=== PATIENT | female | born 1995 | race Caucasian/White ===

== ENCOUNTER → 2016-10-13 | Outpatient (REF) | payer BC ==
[~2016-10-13] MED LIST: ACET50TA PO; NORC5TAB PO
== END ==
LOC: M LAB REF 16:37
PROVIDERS: ATTEND Nurse Practitioner Adult Health
DX: Z00.01 Encounter for general adult medical examination with abnormal findings (principal); M25.50 Pain in unspecified joint

== ENCOUNTER 2017-06-08 11:13 | Emergency (ER) | payer BC ==
[~2017-06-08] VITALS: Ht 160 cm; Wt 82.4 kg
[2017-06-08] MEDS ORDERED: MECL-68 (11:20)
[2017-06-08] MEDS ORDERED: AZIT500T2 (11:20)
--- NOTE | 2017-06-08 13:35 | REP ---
CT Head without contrast HISTORY: Dizziness COMPARISON: None There is no intraparenchymal hemorrhage, acute infarct, mass or midline shift. The ventricular system is normal in appearance. There is no extra cerebral collection. There is no fracture. Mucosal thickening is present in the ethmoid sinuses. IMPRESSION: There is no intracranial lesion. Signed by Geraldo Torres MD 06/08/2017 01:26 P
[2017-06-08 13:58] LABS: METHADONE URINE NEGATIVE (NEGATIVE)
[2017-06-08 14:18] VITALS: BP 129/78
[2017-07-12] MEDS ORDERED: IBUP-1114 PO (22:48)
[2017-07-12] MEDS ORDERED: implanon (22:48)
[2017-07-13] MEDS ORDERED: BENT10CA PO (04:35)
== END 2017-06-08 14:33 | disposition home or self-care (01) ==
LOC: M ED 11:13
DX: R51 Headache (principal); H53.8 Other visual disturbances; R82.5 Elevated urine levels of drugs, medicaments and biological substances; Z79.899 Other long term (current) drug therapy; Z79.2 Long term (current) use of antibiotics; Z91.011 Allergy to milk products; Z88.5 Allergy status to narcotic agent
CPT/HCPCS: 70450; 80307; 81025; 99283; G0480

== ENCOUNTER → 2017-10-14 | Outpatient (REF) | payer BC ==
[2017-10-17 00:06] LABS: TISSUE TRANSGLUTAMINASE IgA <2 U/mL (0-3)
[2017-10-17 00:06] LABS: ENDOMYSIAL ABY IgA Negative (Negative)
== END ==
LOC: M LAB REF 17:58
DX: R19.7 Diarrhea, unspecified (principal); R10.9 Unspecified abdominal pain
CPT/HCPCS: 86255

== ENCOUNTER 2017-12-31 08:23 | Emergency (ER) | payer BC ==
[2017-12-31] MEDS: CYCLOBENZAPRINE 10 MG TAB PO (09:15)
== END 2017-12-31 10:43 | disposition home or self-care (01) ==
LOC: M ED 08:23
DX: S09.90XA Unspecified injury of head, initial encounter (principal); S16.1XXA Strain of muscle, fascia and tendon at neck level, initial encounter; X58.XXXA Exposure to other specified factors, initial encounter; Y92.89 Other specified places as the place of occurrence of the external cause; G89.29 Other chronic pain; F33.9 Major depressive disorder, recurrent, unspecified; Z87.828 Personal history of other (healed) physical injury and trauma; E73.9 Lactose intolerance, unspecified; Z79.3 Long term (current) use of hormonal contraceptives; Z88.5 Allergy status to narcotic agent; Z91.040 Latex allergy status
CPT/HCPCS: 70450